=== PATIENT | male | born 1960 | race Hispanic/Latino ===

== ENCOUNTER 2024-03-09 18:39 | Emergency (ER) | payer OTHER ==
[~2024-03-09] VITALS: Ht 170.2 cm; Wt 90.7 kg
[2024-03-09 18:50] VITALS: PULSE 74; RESP 18; TEMP 98.6
[2024-03-09 19:21] VITALS: BP 139/91; PULSE 74; RESP 18; TEMP 98.4; O2SAT 99
== END 2024-03-09 19:23 | disposition home or self-care (01) ==
LOC: FSED 18:41
DX: S16.1XXA Strain of muscle, fascia and tendon at neck level, initial encounter (principal); M25.512 Pain in left shoulder; R51.9 Headache, unspecified; V43.52XA Car driver injured in collision with other type car in traffic accident, initial encounter; Y92.488 Other paved roadways as the place of occurrence of the external cause
CPT/HCPCS: 99283